=== PATIENT | male | born 1960 | race Hispanic/Latino ===

== ENCOUNTER 2020-05-02 19:54 | Emergency (ER) | payer MEDICARE ==
[~2020-05-02] VITALS: Ht 175.3 cm; Wt 97.1 kg
--- NOTE | 2020-05-02 20:16 | Emergency Department Note ---
History of Present Illnes History of Present Illness Chief Complaint: General Medicine Complaints History of Present Illness This is a 59 year old male with R calf pain since Wednesday . Denies CP or SOB [employer] Required: No Onset (how long ago): day(s) (4) Severity: mild Onset quality: gradual Duration (how long): day(s) (4) Timing of current episode: constant Progression: unchanged Chronicity: new Relieving factors: none Exacerbating factors: none Associated symptoms: Denies chest pain, Denies shortness of breath Treatments prior to arrival: none Past Medical/Family History Physician Review I have reviewed the patient's past medical and family history. Any updates have been documented here. Past Medical History Recent Fever: No Clinical Suspicion of Infectio: No New/Unexplained Change in Ment: No Past Medical History: Hypertension Past Surgical History: None Social History Smoking Cessation: Never Smoker Alcohol Use: None Any Illegal Drug Use: No Review of Systems Review of Systems Constitutional: Reports no symptoms EENTM: Reports no symptoms Cardiovascular: Denies chest pain Respiratory: Denies dyspnea Gastrointestinal: Reports no symptoms Genitourinary: Reports no symptoms Musculoskeletal: Reports muscle pain, Reports muscle stiffness Integumentary: Reports no symptoms Neurological: Reports no symptoms Psychological: Reports no symptoms Endocrine: Reports no symptoms Hematological/Lymphatic: Reports no symptoms Physical Exam Related Data Triage Vital Signs Vital Signs Date Time Temp Pulse Resp B/P (MAP) Pulse Ox O2 Delivery O2 Flow Rate FiO2 05/02/20 20:13 99.0 77 20 126/79 98 Vital signs reviewed: Yes Physical Exam CONSTITUTIONAL Constitutional: Present well-developed, Present well-nourished HENT HENT: Present normocephalic, Present atraumatic, Present oropharynx clear/moist, Present nose normal HENT L/R: Present left ext ear normal, Present right ext ear normal EYES Eyes: Reports PERRL, Reports conjunctivae normal NECK Neck: Present ROM normal PULMONARY Pulmonary: Present effort normal, Present breath sounds normal CARDIOVASCULAR Cardiovascular: Present regular rhythm, Present heart sounds normal, Present capillary refill normal, Present normal rate GASTROINTESTINAL Abdominal: Present soft, Present nontender, Present bowel sounds normal GENITOURINARY Genitourinary: Present exam deferred SKIN Skin: Present warm, Present dry MUSCULOSKELETAL Musculoskeletal: Present edema (r calf, taut with positive Lucila's sign) NEUROLOGICAL Neurological: Present alert, Present oriented x 3, Present no gross motor or sensory deficits PSYCHOLOGICAL Psychological: Present mood/affect normal, Present judgement normal Results Diagnostics Tests Diagnostic test(s) reviewed: Yes Diagnostic comments R venous duplex negative for DVT R arterial duplex negative for arterial occlusion : Triphasic R dorsalis pedal artery Assessment & Plan Medical Decision Making MDM 59 yom with r calf pain. Diff Dx : musc cramps, peripheral vascular disease, DVT, muscle sprain Assessment & Plan Final Impression: (1) Leg cramps Depart Disposition: HOME, SELF-CARE Last Vital Signs Date Time Temp Pulse Resp B/P (MAP) Pulse Ox O2 Delivery O2 Flow Rate FiO2 05/02/20 22:18 75 16 100 05/02/20 20:13 99.0 126/79 YUDI BELL DO May 02, 2020 20:16
--- NOTE | 2020-05-02 20:28 | NUR ---
dr sharif has paged doppler via warehouse order puller
--- NOTE | 2020-05-02 22:16 | NUR ---
RIGHT PEDAL PULSES WERE DISCOVERED VIA DOPPLER, DR BELL INFORMED AND OK WITH DISCHARGE OUTPATIENT INTERVENTIONS
[2020-05-02 22:18] VITALS: BP 105/80
== END 2020-05-02 22:19 | disposition home or self-care (01) ==
LOC: ER 19:54
DX: M79.661 Pain in right lower leg (principal); R25.2 Cramp and spasm; I10 Essential (primary) hypertension
CPT/HCPCS: 93926; 93971; 99283

== ENCOUNTER 2020-09-15 20:17 | Emergency (ER) | payer MEDICARE ==
[~2020-09-15] VITALS: Ht 175.3 cm; Wt 97.1 kg
== END 2020-09-15 21:07 | disposition left against medical advice (07) ==
LOC: ER 21:06
DX: R10.11 Right upper quadrant pain (principal)